=== PATIENT | female | born 1930 | race Caucasian/White ===

== ENCOUNTER 2019-08-23 00:36 | Inpatient (IN) | payer OTHER ==
[~2019-08-23] VITALS: Ht 162.6 cm; Wt 47.8 kg
[2019-08-23] VITALS (8 sets, daily range): BP systolic 89–159; BP diastolic 43–84
[~2019-08-23 00:36] MED LIST: ACYCLOVIR 200200 MG; ALBUTEROL SUL5 MG/M1; NORCO 5-325 TA1 EACH PO
[2019-08-23 01:03] LABS: ABSOLUTE NEUTROPHILS 5.9 thou/uL (1.4-8.2); BASOPHILS 0.3 % (0.0-2.0); EOSINOPHILS 0.8 % (0.0-3.0); HEMATOCRIT 34.1 % (37.0-47.0); HEMOGLOBIN 10.7 gm/dL (12.0-15.0); LYMPHOCYTES 9.1 % (24.0-44.0); MCH 28.6 pg (26.0-34.0); MCHC 31.3 g/dL (28.0-37.0); MCV 91.3 fL (80.0-100.0); MONOCYTES 9.1 % (1.0-8.0); PLATELET COUNT 447 thou/uL (150-400); POLYS 80.7 % (36.0-66.0); RBC 3.73 mil/uL (4.20-5.00); RDW 16.3 % (10.5-14.5); WBC 7.3 thou/uL (4.0-11.0)
[2019-08-23 01:16] LABS: ALBUMIN 3.3 g/dL (3.4-5.0); ANION GAP 3 mmol/L (7-16); CALCIUM 9.2 mg/dL (8.5-10.1); CHLORIDE 99 mmol/L (98-107); CO2 36 mmol/L (21-32); CREATININE 1.1 mg/dL (0.6-1.0); GLUCOSE 123 mg/dL (74-106); POTASSIUM 4.3 mmol/L (3.5-5.1); SGOT 22 U/L (15-37); SGPT 28 U/L (30-65); SODIUM 138 mmol/L (136-145); TOTAL BILIRUBIN 0.2 mg/dL (<0.1-1.0); TOTAL PROTEIN 7.2 g/dL (6.4-8.2); TROPONIN-I <0.06 ng/mL (<0.06)
[2019-08-23 01:27] LABS: BUN 20 mg/dL (7-18)
--- NOTE | 2019-08-23 02:18 | NUR ---
ED NURSE CALLED TO GIVE REPORT TO INPATIENT NURSE, WAS TOLD NURSE IS CURRENTLY IN A ROOM AND WILL CALL BACK FOR REPORT
--- NOTE | 2019-08-23 02:38 | NUR ---
ED NURSE CALLED INPATIENT UNIT A SECOND TIME TO GIVE REPORT, WAS TOLD ONCE AGAIN THE RECEIVING NURSE IS IN A ROOM AND WILL CALL BACK
[2019-08-23 03:21] LABS: BE(vivo) 6.6 mmol/L (-2 to +3); HCO3 34.5 mmol/L (22.0-26.0); PO2 312.5 mmHg (80.0-100.0); sO2 99.6 % (92.0-98.0)
[2019-08-23 03:24] LABS: PCO2 70.5 mmHg (35.0-45.0); pH 7.308 (7.360-7.450)
--- NOTE | 2019-08-23 04:57 | NUR ---
RECEIVED PT FROM THE ER APPROXIMATELY AROUND 0400. AT ARRIVAL PATIENT WAS FUSSY/COOPERATIVE BUT OVERALL SLEEPY. IT WAS HARD TO AROUSE THE PT LONG ENOUGH TO HOLD A CONVERSATION FOR A THOROUGHAL ADMIT, THOUGH PT IS ONLY ALERT/ORIENTED TO SELF AND WHY SHE'S HERE. PT WAS UNABLE TO ANSWER MOST OF THE QUESTIONS ASKED BY THE RN DUE TO COGNITIVE ABILITIES AND ENERGY LEVEL. IT IS STILL UNCLEAR WHERE THE PT RESIDES. PT DID STATE THAT SHE LIVES WITH HER SON AND THAT HE TAKES GREAT CARE OF HER. PERICARE WAS PROVIDED PT ARRIVED SOILED. AT THIS TIME PT IS CLEAN AND RESTING COMFORTABLY. CONTINUOUS OXYGEN IS IN PLACE ALONGSIDE WITH CARDIAC MONITORING GIVEN THE SITUATION THAT PT HAS REQUIRED MUCH MORE OXYGENATION THAN PREVIOUSLY KNOWN TO. RN HAS BEEN ORDERED TO TITRATE THE PT'S OXYGEN LEVEL DOWN. ORIGINALLY PT WAS AT 10L AT THE ED. 6L ON THIS FLOOR. DURING ADMIT PT WAS GRADUALLY TITRATED TO 3.5L AND MAINTAINING A O2 STAT OF 99%, PT'S ABGs WERE DRAWN AND CRITICAL VALUES WERE NOTED. RN HAS CALLED FOR THE CONSULT FOR PULMONOLOGY SERVICE, THEY COMMENTED THAT CALL WILL ARRIVE AROUND 0700. GIVEN THAT THE PT IS STABLE AT THIS TIME, RN FOUND THAT TO BE REASONABLE. FALL RISK PRECAUTION IS ACTIVATED, BED ALARM IS ON, CALL LIGHT IS WITHIN REACH, THOUGH THE PT DOES NOT UNDERSTAND THIS TECHNOLOGY AT THIS TIME. WILL CONTINUE TO TEACH AND FOLLOW UP
--- NOTE | 2019-08-23 08:02 | EKG ---
[facility] [place] [address] ELECTROCARDIOGRAM REPORT Name: INDERJIT REEVES Room #: 355- ADM IN M.R.#: [id number] Admission: 08/23/19 Attend Phys: Aakash Wiley MD Discharge: Date of : [birth year] Report #: [id number] THIS REPORT FOR: cc: [facility] - Clinic physician unknown [facility] - Clinic physician unknown Herman Murrell MD [facility] ~ THIS REPORT FOR: //name// [facility] ED Test Date: 2019-08-23 Test Time: 00:52:12 Pat Name: INDERJIT REEVES Department: Room: [facility] Gender: F Auto Service Writer: : 1930 Requested By: Calvin Kendall Order Number: [id number] MD: Herman Murrell Measurements Intervals [place] Rate: 104 P: 91 HI: 184 QRS: 79 QRSD: 122 T: 70 QT: 343 QTc: 452 Interpretive Statements Sinus tachycardia CRYSTAL, consider biatrial enlargement Probable left ventricular hypertrophy No previous ECG available for comparison Electronically Signed On 08-23-2019 8:00:52 CDT by Herman Murrell [email or web address] <ELECTRONICALLY SIGNED> By: Herman Murrell MD, FACC 08/23/19 0800 005 Herman Murrell MD, [facility] /EPI
[2019-08-23 11:52] LABS: BE(vivo) 4.3 mmol/L (-2 to +3); HCO3 31.6 mmol/L (22.0-26.0); PCO2 62.9 mmHg (35.0-45.0); PO2 64.2 mmHg (80.0-100.0); pH 7.319 (7.360-7.450); sO2 90.2 % (92.0-98.0)
--- NOTE | 2019-08-23 13:54 | NUR ---
INITIAL ASSESSMENT: Received consult for discharge planning. SW reviewed chart and spoke with attending physician. Pt was admitted from home due to COPD exacerbation. Pt is in Enhanced Isolation to r/o COVID-19. Results pending at this time. Pt unable to answer questions over the phone. SW spoke with pt's son, Genevieve. Introduced role of SW. Pt lives at home with Genevieve. Prior to admission, pt was using a walker and transport chair. There a couple of steps to get into the house, but pt does not need to navigate stairs. Pt with recent falls. Pt has had HH set up in the past, but pt always refuses. Pt has been to [facility] in 2019. Pt is currently on 2L continuous O2 through [employer]. Pt's PCP is Dr. Mario Brown. Pt's real estate rep is Dr. Byrne. Goal is for pt to return home at time of discharge. Pt's son would be open to considering SNF if needed. Awaiting therapy evaluations pending COVID results. [facility] is following to assist as needed with discharge planning.
--- NOTE | 2019-08-23 17:29 | NUR ---
Spoke with Shira Reynoso on negative Covid test. Patient afebrile. Agrees with discontinuing enhanced precautions and transferring off floor.
--- NOTE | 2019-08-23 19:41 | NUR ---
JUNE HAS BEEN QUITE RESTLESS THROUGH THE DAY. KEPT ATTEMPTING TO LEAVE THE BED AND NO EASILY REDIRECTED. LORAZEPAM ADMININSTERED TWICE AND IT SEEMED TO HAVE THE OPPOSITE EFFECT. HALDOL ADMINISTERED LATER ON AND IT WAS EFFECTIVE. PATIENT IS NOW RESTING AND DOES NOT SEEM TO BE IN PAIN OR DISTRESS. PLEASANT WITH CARE.
--- NOTE | 2019-08-23 22:27 | NUR ---
GAVE REPORT TO MICHAEL LEGER, NOTIFIED THAT PT WOULD BENEFIT FROM CONTINUOUS O2 MONITORING ALONGSIDE WITH CARDIAC MONITORING. PT WAS SLEEPING WHEN SHE WAS TRANSFERED, DID NOT COMPLAIN OF ANY PAIN AT THAT TIME. PT WAS CHANGED/CLEANSED/BARRIER CREAM PROVIDED/NEW SHEETS PROVIDED/NEW IV ACCESS CREATED, ALL PRIOR TO LEAVING. NOC MEDS HAVE BEEN ADMINISTERED EXCEPT FOR PO D/T PT'S COGNITIVE STATUS AND SLEEPINESS. ALL BELONGINGS WERE SENT DOWN WITH THE PATIENT, PT WAS TRANSFERRED WITH TWO PEOPLE AND OXYGEN ON 3L W/ CARDIAC MONITORING. THIS RN IS NOW SIGNING OFF.
--- NOTE | 2019-08-24 04:36 | NUR ---
Pt. has had periods of being anxious during the night and c/o pain to her right shoulder. She is not a very good historian due to confusion. She c/o shortness of air and 02 saturations have been in the upper 90's with 02 on. Continues to get scheduled breathing treatments. Right shoulder swollen with an abrasion present. This nurse asked pt. if she had fallen recently and she replied yes, at home. Erica GUTIERREZ notified of pt. restlessness and of right shoulder (see new orders and emar). Bed alarm is on.
--- NOTE | 2019-08-24 04:41 | NUR ---
Pt. currently resting quietly in the bed and offers no complaints. Bed alarm is on.
[2019-08-24 05:19] VITALS: BP 166/79
--- NOTE | 2019-08-24 05:45 | NUR ---
Pt. restless and moaning out. Po tylenol given earlier for right shoulder pain with no relief. Erica GUTIERREZ/Dr. Jacobo with new orders noted (see cpoe).
[2019-08-24 08:30] VITALS: BP 141/68
[2019-08-24 11:00] VITALS: BP 141/68
--- NOTE | 2019-08-24 11:04 | NUR ---
ASSUMED CARE AT SHIFT CHANGE, ALERT BUT CONFUSED. ASSESSMENT DOCUMENTED. MEDICATED FOR PAIN AN INDICATED. REPORT GIVEN TO HENRRY AND PATIENT TRANFERED TO 4W, RM 452.
--- NOTE | 2019-08-24 19:52 | NUR ---
Pt transfered to unit from ccu per wc at 11am in stable condition.Assessment completed.vss.Pt was moaning and c/o chest pain around 1430,vs taken and documented.Dr Pascual notified and order noted.Pt reported feeling better and slept for over one hour after given morphine.Family called several times today and updates given.Will continue to monitor.
[2019-08-24 20:14] VITALS: BP 176/78
[2019-08-25 03:50] VITALS: BP 173/78
--- NOTE | 2019-08-25 04:33 | NUR ---
Pt. rested quietly a short intervals during the night when checked on during frequent rounds. Unable to rest at hs and Erica PLANT ENGINEERING SUPERVISOR notified and new orders given for po melatonin (see orders). Pt. also c/o right shoulder pain and order received for lidocaine patch (see orders). Also, po pain meds given (see emar) with some relief noted. She c/o chronic shortness of air and RT treatments given and has 02 on at 3 liters per a nasal canula. O2 saturations in the 90's. No c/o chest pain. Assisted up to the bedside comode with one person and did well. Pt. did void. She does moan out frequently. Po ativan given (see emar) with little relief of anxiety. Bed alarm is on.
[2019-08-25 07:15] VITALS: BP 153/68
--- NOTE | 2019-08-25 07:53 | EKG ---
[facility] [place] [address] ELECTROCARDIOGRAM REPORT Name: INDERJIT REEVES Room #: [facility] ADM IN M.R.#: [id number] Admission: 08/23/19 Attend Phys: Aakash Wiley MD Discharge: Date of : [birth year] Report #: [id number] THIS REPORT FOR: cc: [facility] - Clinic physician unknown [facility] - Clinic physician unknown Herman Murrell MD [facility] THIS REPORT FOR: //name// [facility] Test Date: 2019-08-24 Test Time: 12:49:17 Pat Name: INDERJIT REEVES Department: Room: [facility] Gender: F Vehicle Sales Professional: Silva ARENAS : 1930 Requested By: Jessi Pascual Order Number: [id number] MD: Herman Murrell Measurements Intervals [place] Rate: 101 P: 72 IN: 116 QRS: 75 QRSD: 110 T: 69 QT: 339 QTc: 440 Interpretive Statements Sinus tachycardia Right atrial enlargement Probable left ventricular hypertrophy Compared to ECG 08/23/2019 00:52:12 No significant change was found Electronically Signed On 08-25-2019 7:51:43 CDT by Herman Murrell [email or web address] <ELECTRONICALLY SIGNED> By: Herman Murrell MD, [facility] 08/25/19 0751 [id number] [id number] Herman Murrell MD, [facility] /EPI
[2019-08-25 09:05] VITALS: BP 160/84
[2019-08-25 09:10] VITALS: BP 160/84
[2019-08-25 10:05] VITALS: BP 104/51
--- NOTE | 2019-08-25 10:57 | NUR ---
Assumed pt care at 7am.Pt in bed sound asleep with fall precaution in place. Assessment completed.vss.but labored breathing noted. Dr Lane here,no order noted.Around 904,bed alarm prompted rn response to pt room.Pt was found on the floor with blood dripping from her left frontal occipital.Post fall huddle form completed.Nsg telemarketer supervisor,Doctor surveyor oil well directional and family notitied.Order received.Pt sustained hematoma with ion size on left frontal occipital. [employer] assisted with feeding at breakfast.Dr Pascual later rounded on pt and additional order noted. Pt in bed sleeping at present with o2 on.Will contininue to monitor.
--- NOTE | 2019-08-25 14:59 | NUR ---
THERAPY HASN'T BEEN ABLE TO ASSESS PT OF THIS NOTE. CARE TEAM INDICATED THAT PT FELL THIS AM AND SUSAINED A HEMATOMA. SON HAD INDICATED THAT HOPE IS THAT PT WOULD BE EVERARDO TO PROGRESS TO BE ABLE TO RETURN HOME ONCE MEDICALLY STABLE. CM FOLLOWING INDICATED WITH DC PLANNING.
[2019-08-25 16:25] VITALS: BP 147/56
[2019-08-26 00:15] VITALS: BP 173/80
--- NOTE | 2019-08-26 07:52 | NUR ---
PROGRESS PT VERY SEDATED ON ARRIVAL MOAN AND SQUIRMING IN BED BUT EYES CLOSED AND NOT RESPONDING APPROPRIATELY TO QUESTIONS. PT HAD A FALL YESTERDAY AND A HEMATOMA NOTED TO BACK OF HEAD IN OCCIPITAL AREA AND A SMALL LACERATION AND BRUISING TO LEFT FOREHEAD TEMPORAL AREA. VSS BP GETS ELEVATED WITH AGITATION. 0.5 MG ATIVAN GIVEN PER DENA ÁLVAREZ ASSEMBLER LEATHER GOODS STATED I COULD GIVE A HALF OF DOSE TO AVOID SATURATION. NO RELIEF NOTED PT STILL WITH USE OF ACCESSORY MUSCLES AND APPEARS ANXIOUS. REQUESTED A SMALL DOSE OF MORPHINE FOR AIR HUNGER AND WAS INSTRUCTED TO TRY THE ATIVAN FIRST. O2 VIA NC AT 2 LITERS RT TX'S Q4HRS INSPIRATORY AND EXPIRATORY WHEEZES NOTED. CONTIUE TO MONITOR.
[2019-08-26 08:08] VITALS: BP 145/68
--- NOTE | 2019-08-26 13:30 | NUR ---
PT AND OT ABLE TO WORK WITH PT THIS DAY. BOTH RECOMMENDING POST ACUTE CARE STAY. CM CALLED AND LEFT VM WIHT PT'S SON SWETA. AWAITING RESPONSE. CM TO FOLLOW INDICATED WITH DC PLANNING.
[2019-08-26 14:22] VITALS: BP 135/56
[2019-08-26 19:23] VITALS: BP 158/78
--- NOTE | 2019-08-26 19:37 | NUR ---
Assumed pt care this am, pt is very confused and could be impulsive at times. Pt is not responsive and not able to verbalize needs. Medications given crushed with yoghurt, took some of the suppliments. Small frequent feedings were promoted, appetite is poor. Dr. Pascual place pt on NPO swallow eval attempted but pt refused to participate due to the severe confusion. 2L of O2 via NC maintained. pt would make make croaking sounds though air hunger was not noted. Seen by Dr. Mora, pt is not mentally capable at this point to participate in the swallow ever. POC followed, no signs and verbalizations of distress noted. Endorsed to the night nurse.
--- NOTE | 2019-08-27 01:17 | NUR ---
patient aox1 confused and forgetful. patient was restless this shift prn xanax given per drYanely order. patient is on 2l of oxygen patient has soa with activities. scds on. patient is not able to tolerated taking meds. patient sleeping on and off this shift. patient incontient this shift pericare and barrier cream applied as needed. will continue to monitor patient and call drYanely for any changes.
[2019-08-27 08:19] VITALS: BP 133/53
--- NOTE | 2019-08-27 14:58 | NUR ---
ASSUMED CARE AROUND 0700, PT A&O TO PERSON, NO ACUTE CHANGES NOTED. VSS, O2 ON 3L VIA NC. PT DENIES ANY PAIN, ABLE TO MAKE SOME NEEDS KNOWN. MEDS CRUSHED AND GIVEN WITH YOGHURT WHICH PT TOLERATED WELL, NO COUGHING OR CHOKING NOTED. IV IN LFA FLUSHES WELL. LARGE LOOSE BM X 2 TODAY. PT RESTING IN BED, CALL LIGHT WITHIN REACH, WILL CONTINUE TO MONITOR PER POC.
[2019-08-27 16:00] VITALS: BP 136/57
[2019-08-27 20:57] VITALS: BP 148/62
--- NOTE | 2019-08-28 03:41 | NUR ---
PROGRESS PT MORE ALERT AND VOCAL TODAY, ABLE TO RESPOND TO QUESTIONS AND ASKS QUESTIONS HERSELF. LUNG SOUNDS DIMINISHED SLIGHT WHEEZING HEARD THROUGHOUT. RT TX'S CONTINUE. SITTING UP IN BED REQUESTING WATER AND ASKING TO GET OUT OF BED. REPOSITIONING SELF. ON 2 LITERS O2. ON PUREED DIET AND THIN LIQUIDS HAD HER PILLS CRUSHED AND PUT IN PUDDING PT SWALLOWED WITH CHOKING OR COUGHING DRINKING GOOD AMOUNTS OF WATER WITH NO CHOKING OR COUGHING NOTED. INCONTINENT OF BLADDER AND BOWELS. HAD 2 LARGE BM'S ON DAY SHIFT. KEEPS REMOVING O2 AND SATS DROP INTO LOW 80'S REAPPLIED O2 BUMPED UP TO 3 TO 4 LITERS UNTIL SATS AT 92%. CONTINUE POC.
[2019-08-28 03:50] VITALS: BP 132/60
[2019-08-28 07:07] VITALS: BP 130/64
[2019-08-28 15:34] VITALS: BP 113/50
--- NOTE | 2019-08-28 16:57 | NUR ---
PT ALERT AND ORIENTED TIMES THREE WITH PERIODS OF CONFUSION. VSS, 93%2L. PT DENIES PAIN/SOA. PT TOLERATES MEDS AND MEALS. PT UP TO BSC WITH ASSIST OF ONE. PT SLOWLY PROGRESSING [facility] POC GOALS.
[2019-08-28 20:40] VITALS: BP 131/45
[2019-08-29 03:52] VITALS: BP 144/63
[2019-08-29 07:26] VITALS: BP 152/72
--- NOTE | 2019-08-29 08:36 | NUR ---
progress pt a/o x4 up with sba gb and walker gait steady. pt more awake behavior appropriate. up to chair for awhile, rested then took a shower she participated in care. o2 sats in 90's on 2 liters occasional cough no sputum noted, lungs diminished throughout. skin intact but bruising noted to shoulders arms and back from fall and iv sticks. tolerating pureed diet taking thin liquids with no coughing or choking noted.voiding qs, occasionally incontinent but calling to use bathroom this shift. thick white plaque noted to tongue nystatin ordered by ysed heel shaver. continue to monitor
--- NOTE | 2019-08-29 10:20 | NUR ---
FAXED REFERRAL TO [facility] SPOKE WITH YANA OJEDA LIASON SHE RECEIVED REFERRAL AND CAN ACCEPT CLINICALLY AND WOULD BE ABLE TO GET SAME DAY AUTH. FAXED REFERRAL TO [facility] AT [place] RECEIVED CONFIRMATION LEFT MSG WITH ADM.
--- NOTE | 2019-08-29 13:08 | NUR ---
CM SPOKE WITH PT'S SON AND HE INDICATED THAT THEY WOULD LIKE REFERRAL FOR POST ACUTE CARE STAY SENT TO [facility] FOR POSSIBLE ADMISSION. REFERRAL SENT. THEY INDICATED THEY ARE ABLE TO ACCEPT PT AND WE ASKED THEM TO SUBMIT FOR INSURANCE AUTH WITH POSSIBLE DC TOMORROW. CM TO NOTIFY SON. CM FOLLOWING INDICATED WITH DC PLANNING.
[2019-08-29 15:34] VITALS: BP 123/50
[2019-08-29 19:10] VITALS: BP 123/41
--- NOTE | 2019-08-29 19:50 | NUR ---
PT A&OX3 CONFUSED AT TIMES. TRANSFERS, AMBULATES WITH ASSIST X1 AND WALKER. BRUISES NOTED ON ARMS FROM FALL AT HOME. IV INTACT IN L FA. O2&2L PER NC, DESATS TO 8O'S WHEN OFF.
--- NOTE | 2019-08-30 02:26 | NUR ---
PT CARE ASSUMED WITH PT IN BED.PT IS ALERT AND ORIENTED X3.PT IS CONFUSE.PT IS UP TO BED.PT IS ON 2L OF O2 NC AND WANTS TO GO HOME.PT IS ALSO INCONTINENT TO BLADDER.PT C/O WANTING SOMETHING TO MAKE HER SLEEP.PT HAS MULTIPLE BRUISES ON SKIN AND HANDS.PT APPEARED TO BE IN NO ACUTE DISTRESS.WILL CONTINUE TO MONITOR
[2019-08-30 07:02] VITALS: BP 130/45
--- NOTE | 2019-08-30 11:09 | NUR ---
Received awake on bed. Due medications given as prescribed, able to swallow small tablets w/o difficulty. A+O 2-3, re-oriented; MOAPA- no hearing aids on. With O2 at 2lpm via nasal cannula; with history of COPD, emphysema and respiratory failure. On pureed diet- tolerating well; no nausea, no vomiting and no abdominal pain noted; assisted and encouraged in eating and drinking. Incontinent of bowel and bladder; output measured and recorded accordingly; checked frequently and changed as needed. Assisted in ADLs. With SL at L FA, on IV antibiotics. Able to sit out on chair today using walker and gait belt. Falls bundle in place, with recent history of fall- frequent visual checks. Possible discharge today, a/w physician's orders. To continue monitoring patient.
[2019-08-30] MEDS ORDERED: LEVAQUIN 500 M500 M3 PO (11:17)
[2019-08-30] MEDS ORDERED: PEPCID20 MG PO (11:30)
[2019-08-30] MEDS ORDERED: IPRAT-ALBUT 0.5-3 ML INH (11:30)
[2019-08-30] MEDS ORDERED: PREDNISONE 20 M20 MG PO (11:30)
[2019-08-30] MEDS ORDERED: ADULT TUSS100 MG/5 M PO (11:30)
[2019-08-30] MEDS ORDERED: VITAMIN D325 MCG PO (11:30)
[2019-08-30] MEDS ORDERED: ALPRAZOLAM 0.0.25 M1 PO (11:30)
[2019-08-30] MEDS ORDERED: LIDOPATCH1 EACH TRANSDERM (11:30)
[2019-08-30] MEDS ORDERED: COLACE 100 MG100 MG PO (11:30)
[2019-08-30] MEDS ORDERED: NYSTATIN100000 UNI PO (11:30)
--- NOTE | 2019-08-30 15:13 | NUR ---
PT DISCHARGING TODAY TO [facility] FAXED DC ORDERS/SUMMARY TO FACILITY SPOKE WITH MICHAEL IN ADM SHE RECEIVED ORDERS AND ARRANGED TRANSPORT BY [facility] FOR 1500 TODAY LEFT VOICEMAIL WITH PT'S SON (LACY) WITH DC AND TIME OF TRANSPORT. UNIT NOTIFIED AND CHART COPY PER US. RN TO CALL REPORT TO [phone].
--- NOTE | 2019-08-30 16:29 | NUR ---
AUTH HAD BEEN RECEIVED FOR PT [facility]. CHART COPY ORDERED. PT AND SON ARE AWARE AND AGREEABLE. TRANSPORT ARRANGED FOR 1500. ORDERS FAXED. NO OTHER CM INTERVENTION INDICATED. CASE CLOSED.
== END 2019-08-30 15:03 | DRG 189 ==
LOC: ER 00:36 → EROBS 01:51 → 3W 01:51 → 2N 22:53 → ENTRNSPT 08-24 10:39 → 4W 08-24 11:03
PROVIDERS: Emergency Medicine; Nurse Practitioner Family; ADMIT Internal Medicine
DX: J96.21 Acute and chronic respiratory failure with hypoxia (principal); E46 Unspecified protein-calorie malnutrition; B37.0 Candidal stomatitis; Z68.1 Body mass index [BMI] 19.9 or less, adult; S00.03XA Contusion of scalp, initial encounter; R41.0 Disorientation, unspecified; J43.9 Emphysema, unspecified; Z66 Do not resuscitate; R26.9 Unspecified abnormalities of gait and mobility; E55.9 Vitamin D deficiency, unspecified; K59.00 Constipation, unspecified; F17.210 Nicotine dependence, cigarettes, uncomplicated; W18.39XA Other fall on same level, initial encounter; Y93.89 Activity, other specified; Y92.89 Other specified places as the place of occurrence of the external cause; Z79.2 Long term (current) use of antibiotics; Z79.891 Long term (current) use of opiate analgesic; Z79.899 Other long term (current) drug therapy; Z99.81 Dependence on supplemental oxygen; Z90.710 Acquired absence of both cervix and uterus; Y99.8 Other external cause status; Z03.818 Encounter for observation for suspected exposure to other biological agents ruled out
CPT/HCPCS: 10047; 10081